=== PATIENT | female | born 1940 | race Caucasian/White ===

== ENCOUNTER 2022-12-03 11:46 | Outpatient (CLI) | payer MEDICARE | END 2022-12-03 11:47 | disposition home or self-care (01) | LOC: BICMRI 11:46 | PROVIDERS: ATTEND Family Medicine | DX: M25.552 Pain in left hip (principal); M51.16 Intervertebral disc disorders with radiculopathy, lumbar region | CPT/HCPCS: 72148 ==

== ENCOUNTER 2023-03-03 09:45 | Outpatient (CLI) | payer MEDICARE | END 2023-03-03 09:46 | disposition home or self-care (01) | LOC: BICMAMMO 09:45 | PROVIDERS: ATTEND Family Medicine | DX: Z12.31 Encounter for screening mammogram for malignant neoplasm of breast (principal); Z13.820 Encounter for screening for osteoporosis; M81.0 Age-related osteoporosis without current pathological fracture; M85.851 Other specified disorders of bone density and structure, right thigh; M85.852 Other specified disorders of bone density and structure, left thigh; Z78.0 Asymptomatic menopausal state | CPT/HCPCS: 77063; 77067; 77080 ==

== ENCOUNTER 2023-11-03 04:09 | Emergency (ER) | payer MEDICARE ==
[2023-11-03] MEDS ORDERED: Acetaminophen 325 MG TAB ONE (04:41)
[2023-11-03] MEDS ORDERED: Ondansetron ODT 4 MG TAB ONE (04:41)
[2023-11-03] MEDS ORDERED: Ketorolac Tromethamine 30 MG (1 mL) VIAL ONE (05:21)
[2023-11-03] MEDS ORDERED: Dexamethasone 10 MG/ML VIAL ONE (05:21)
[2023-11-03 05:45] LABS: Influenza A by NAA Not Detected (NotDetected); Influenza B by NAA Not Detected (NotDetected); SARS-CoV-2 NAA Rapid Test DETECTED (NotDetected)
== END 2023-11-03 06:38 | disposition home or self-care (01) ==
LOC: ERS 04:09
DX: U07.1 COVID-19 (principal)
CPT/HCPCS: 0240U; 71045; 96372; 99284; J1100; J1885; Q0162